=== PATIENT | male | born 1965 | race Caucasian/White ===

== ENCOUNTER → 2016-07-13 13:25 | Outpatient (CLI) | payer MEDICAID ==
[2016-07-13 16:42] LABS: CALC OSMOLALITY 274 mosm/kg (275-300); CHLORIDE - SERUM 100 mmol/L (98-107); POTASSIUM - SERUM 3.4 mmol/L (3.5-5.1); SODIUM 137 mmol/L (136-145); UREA NITROGEN 11 mg/dL (7-18); eGFR NON AFRICAN AMERICAN 84 mL/min (90-120)
[2016-07-13 16:50] LABS: GLUCOSE 132 mg/dL (74-106)
== END | disposition home or self-care (01) ==
LOC: D.LABREF 13:25
PROVIDERS: Family Medicine
DX: Z98.890 Other specified postprocedural states (principal); K21.9 Gastro-esophageal reflux disease without esophagitis; I10 Essential (primary) hypertension

== ENCOUNTER → 2016-07-20 11:32 | Outpatient (CLI) | payer MEDICAID ==
[2016-07-20 12:11] LABS: BASOPHILS 0.5 % (0.0-2.0); EOSINOPHILS 5.8 % (0-7); HEMATOCRIT 42.9 % (42.0-54.0); HEMOGLOBIN 14.6 g/dL (13.5-17.5); IMMATURE GRANULOCYTES 0.4 % (0-5); LYMPHOCYTES 15.4 % (15-50); MCH 32.6 pg (26.0-34.0); MCV 95.8 fL (80.0-100.0); MEAN PLATELET VOLUME 11.6 fL (7.4-10.4); NEUTROPHILS 71.9 % (40-80); PLATELET COUNT 116 10x3/uL (130-400); RBC 4.48 10x6/uL (4.20-6.10); RDW 14.6 % (11.5-14.5); WBC 7.8 10x3/uL (4.8-10.8)
[2016-07-20 12:33] LABS: CALC OSMOLALITY 270 mosm/kg (275-300); CALCIUM 9.3 mg/dL (8.5-10.1); CARBON DIOXIDE 25.4 mmol/L (21.0-32.0); CHLORIDE - SERUM 100 mmol/L (98-107); CREATININE - SERUM 1.1 mg/dL (0.6-1.3); GLUCOSE 146 mg/dL (74-106); POTASSIUM - SERUM 4.1 mmol/L (3.5-5.1); SODIUM 134 mmol/L (136-145); UREA NITROGEN 13 mg/dL (7-18); eGFR NON AFRICAN AMERICAN 75 mL/min (90-120)
== END | disposition home or self-care (01) ==
LOC: D.LABREF 11:32
PROVIDERS: Family Medicine
DX: I10 Essential (primary) hypertension (principal); G93.5 Compression of brain

== ENCOUNTER → 2016-07-28 16:09 | Outpatient (CLI) | payer MEDICAID ==
[2016-07-28 16:53] LABS: CALC OSMOLALITY 277 mosm/kg (275-300); CALCIUM 9.5 mg/dL (8.5-10.1); CARBON DIOXIDE 26.6 mmol/L (21.0-32.0); CHLORIDE - SERUM 101 mmol/L (98-107); CREATININE - SERUM 1.1 mg/dL (0.6-1.3); GLUCOSE 122 mg/dL (74-106); SODIUM 138 mmol/L (136-145); UREA NITROGEN 14 mg/dL (7-18); eGFR NON AFRICAN AMERICAN 75 mL/min (90-120)
== END | disposition home or self-care (01) ==
LOC: D.LABREF 16:09
PROVIDERS: Family Medicine
DX: T81.4XXA Infection following a procedure, initial encounter (principal)

== ENCOUNTER → 2016-08-03 14:23 | Outpatient (CLI) | payer MEDICAID ==
[2016-08-03 14:59] LABS: CALC OSMOLALITY 271 mosm/kg (275-300); CALCIUM 9.1 mg/dL (8.5-10.1); CARBON DIOXIDE 29.7 mmol/L (21.0-32.0); CHLORIDE - SERUM 98 mmol/L (98-107); CREATININE - SERUM 0.9 mg/dL (0.6-1.3); GLUCOSE 101 mg/dL (74-106); POTASSIUM - SERUM 4.1 mmol/L (3.5-5.1); SODIUM 136 mmol/L (136-145); UREA NITROGEN 13 mg/dL (7-18); eGFR NON AFRICAN AMERICAN > 90 mL/min (90-120)
== END | disposition home or self-care (01) ==
LOC: D.LABREF 14:23
PROVIDERS: Family Medicine
DX: T81.4XXA Infection following a procedure, initial encounter (principal); G03.9 Meningitis, unspecified

== ENCOUNTER → 2016-08-10 12:37 | Outpatient (CLI) | payer MEDICAID ==
[2016-08-10 13:25] LABS: CALC OSMOLALITY 275 mosm/kg (275-300); CALCIUM 8.6 mg/dL (8.5-10.1); CARBON DIOXIDE 26.9 mmol/L (21.0-32.0); CHLORIDE - SERUM 100 mmol/L (98-107); CREATININE - SERUM 0.9 mg/dL (0.6-1.3); GLUCOSE 145 mg/dL (74-106); POTASSIUM - SERUM 3.1 mmol/L (3.5-5.1); SODIUM 137 mmol/L (136-145); UREA NITROGEN 10 mg/dL (7-18); eGFR NON AFRICAN AMERICAN > 90 mL/min (90-120)
== END | disposition home or self-care (01) ==
LOC: D.LABREF 12:37
PROVIDERS: Family Medicine
DX: T81.4XXA Infection following a procedure, initial encounter (principal)

== ENCOUNTER → 2016-08-17 15:54 | Outpatient (CLI) | payer MEDICAID ==
[2016-08-17 20:41] LABS: CALC OSMOLALITY 276 mosm/kg (275-300); CALCIUM 9.2 mg/dL (8.5-10.1); CARBON DIOXIDE 27.4 mmol/L (21.0-32.0); CHLORIDE - SERUM 103 mmol/L (98-107); CREATININE - SERUM 0.9 mg/dL (0.6-1.3); POTASSIUM - SERUM 3.2 mmol/L (3.5-5.1); SODIUM 140 mmol/L (136-145); UREA NITROGEN 9 mg/dL (7-18); eGFR NON AFRICAN AMERICAN > 90 mL/min (90-120)
[2016-08-17 20:42] LABS: GLUCOSE 74 mg/dL (74-106)
== END | disposition home or self-care (01) ==
LOC: D.LABREF 15:54
PROVIDERS: Family Medicine
DX: T81.4XXA Infection following a procedure, initial encounter (principal)

== ENCOUNTER 2016-09-12 10:09 | Emergency (ER) | payer MEDICAID ==
[2016-09-12 11:00] LABS: BASOPHILS 0.3 % (0.0-2.0); EOSINOPHILS 0.4 % (0-7); HEMATOCRIT 45.3 % (42.0-54.0); HEMOGLOBIN 16.2 g/dL (13.5-17.5); IMMATURE GRANULOCYTES 0.4 % (0-5); LYMPHOCYTES 23.3 % (15-50); MCHC 35.8 g/dL (31.0-37.0); MCV 92.3 fL (80.0-100.0); MEAN PLATELET VOLUME 10.8 fL (7.4-10.4); MONOCYTES 6.7 % (2-11); NEUTROPHILS 68.9 % (40-80); RBC 4.91 10x6/uL (4.20-6.10); WBC 7.6 10x3/uL (4.8-10.8)
[2016-09-12 11:04] LABS: PLATELET COUNT 162 10x3/uL (130-400)
[2016-09-12 11:17] LABS: ALBUMIN 3.9 g/dL (3.4-5.0); ALKALINE PHOSPHATASE 46 U/L (46-116); ALT (SGPT) 18 U/L (10-68); AMYLASE - SERUM 38 U/L (25-115); BILIRUBIN - TOTAL 1.01 mg/dL (0.2-1.3); CALC OSMOLALITY 266 mosm/kg (275-300); CALCIUM 9.9 mg/dL (8.5-10.1); CARBON DIOXIDE 24.8 mmol/L (21.0-32.0); CHLORIDE - SERUM 97 mmol/L (98-107); CREATININE - SERUM 0.9 mg/dL (0.6-1.3); LIPASE 96 U/L (73-393); POTASSIUM - SERUM 3.9 mmol/L (3.5-5.1); PROTEIN - SERUM 7.9 g/dL (6.4-8.2); SODIUM 133 mmol/L (136-145); UREA NITROGEN 12 mg/dL (7-18); eGFR NON AFRICAN AMERICAN > 90 mL/min (90-120)
[2016-09-12 11:19] LABS: GLUCOSE 117 mg/dL (74-106)
[2016-09-12 11:25] LABS: APPEARANCE CLEAR (CLEAR); BILIRUBIN NEGATIVE (NEGATIVE); COLOR YELLOW (YELLOW); EPITHELIAL CELLS OCC /hpf (0-5); GLUCOSE NEGATIVE (NEGATIVE); KETONE SMALL mg/dL (NEGATIVE); LEUKOCYTE ESTERASE NEGATIVE (NEGATIVE); NITRITE NEGATIVE (NEGATIVE); PROTEIN 1+ mg/dL (NEGATIVE); UROBILINOGEN NORMAL (NORMAL)
[2016-09-12 11:26] LABS: AMORPHOUS SEDIMENT >1+ /lpf (NONE SEEN); BACTERIA FEW /hpf (NONE SEEN)
== END 2016-09-12 13:04 | disposition home or self-care (01) ==
LOC: D.ER 10:09
PROVIDERS: Emergency Medicine
DX: R11.10 Vomiting, unspecified (principal); F17.200 Nicotine dependence, unspecified, uncomplicated

== ENCOUNTER 2016-09-18 14:56 | Emergency (ER) | payer MEDICAID ==
[2016-09-18 15:33] LABS: BASOPHILS 0.3 % (0.0-2.0); EOSINOPHILS 0.9 % (0-7); HEMATOCRIT 47.2 % (42.0-54.0); HEMOGLOBIN 16.8 g/dL (13.5-17.5); IMMATURE GRANULOCYTES 0.3 % (0-5); MCH 32.8 pg (26.0-34.0); MCHC 35.6 g/dL (31.0-37.0); MCV 92.2 fL (80.0-100.0); MEAN PLATELET VOLUME 10.3 fL (7.4-10.4); MONOCYTES 7.5 % (2-11); PLATELET COUNT 172 10x3/uL (130-400); RBC 5.12 10x6/uL (4.20-6.10); RDW 11.9 % (11.5-14.5); WBC 7.4 10x3/uL (4.8-10.8)
[2016-09-18 15:51] LABS: ALKALINE PHOSPHATASE 59 U/L (46-116); ALT (SGPT) 89 U/L (10-68); BILIRUBIN - TOTAL 1.05 mg/dL (0.2-1.3); CALC OSMOLALITY 271 mosm/kg (275-300); CALCIUM 9.8 mg/dL (8.5-10.1); CARBON DIOXIDE 28.1 mmol/L (21.0-32.0); CHLORIDE - SERUM 98 mmol/L (98-107); GLUCOSE 107 mg/dL (74-106); POTASSIUM - SERUM 3.6 mmol/L (3.5-5.1); PROTEIN - SERUM 7.9 g/dL (6.4-8.2); SODIUM 136 mmol/L (136-145); UREA NITROGEN 13 mg/dL (7-18); eGFR NON AFRICAN AMERICAN 84 mL/min (90-120)
[2016-09-18 15:53] LABS: APTT 27.8 SECONDS (22.8-39.4); INR 0.99 (0.85-1.17); PROTIME 12.9 SECONDS (11.6-15.0)
[2016-09-18 15:54] LABS: CREATINE KINASE 28 UL (21-232)
== END 2016-09-18 20:16 | disposition short-term general hospital (02) ==
LOC: D.ER 14:56
PROVIDERS: Emergency Medicine
DX: G91.9 Hydrocephalus, unspecified (principal); F17.200 Nicotine dependence, unspecified, uncomplicated

== ENCOUNTER 2017-06-01 14:06 | Emergency (ER) | payer MEDICAID | END 2017-06-01 17:49 | disposition home or self-care (01) | LOC: D.ER 14:06 | DX: M54.5 Low back pain (principal); S39.012A Strain of muscle, fascia and tendon of lower back, initial encounter; X58.XXXA Exposure to other specified factors, initial encounter; Y93.89 Activity, other specified; Y92.89 Other specified places as the place of occurrence of the external cause; F17.200 Nicotine dependence, unspecified, uncomplicated ==

== ENCOUNTER → 2017-07-25 10:19 | Outpatient (CLI) | payer MEDICAID | END | disposition home or self-care (01) | LOC: D.CT 10:19 | DX: R56.9 Unspecified convulsions (principal) ==

== ENCOUNTER 2018-09-30 20:01 | Emergency (ER) | payer MEDICARE ==
[~2018-09-30] VITALS: Ht 170.2 cm; Wt 77.3 kg
[2018-09-30 20:05] VITALS: Ht 170.2 cm; Wt 77.3 kg
[2018-09-30] MEDS ORDERED: AUGMENTIN 875-11 TAB PO (23:14)
[2018-09-30] MEDS ORDERED: HYDROCODON-ACE1 EAC7 PO (23:14)
[2018-09-30] MEDS ORDERED: ZOFRAN4 MG PO (23:14)
[2018-09-30] MEDS ORDERED: CYCLOBENZAPRINE10 MG PO (23:15)
[2018-10-01 00:20] VITALS: BP 136/85
== END 2018-10-01 00:20 | disposition home or self-care (01) ==
LOC: D.ER 20:01
DX: S68.625A Partial traumatic transphalangeal amputation of left ring finger, initial encounter (principal); W54.0XXA Bitten by dog, initial encounter